=== PATIENT | female | born 1990 | race Caucasian/White ===

== ENCOUNTER 2016-10-25 17:30 | Emergency (ER) | payer MEDICAID ==
[~2016-10-25] VITALS: Wt 52.5 kg
[~2016-10-25 17:30] MED LIST: AZIT500T3 PO; IBUP-1542 PO
[2016-10-25] MEDS ORDERED: ONDANSETRON (ODT) 4 MG TAB ODT STA ×2 (19:09→20:49)
[2016-10-25] MEDS ORDERED: KETOROLAC 15 MG INJ IM STA (20:49)
[2016-10-25 21:06] LABS: URINE BLOOD (Dip) POC 2+ (NEGATIVE)
[2016-10-25] MEDS ORDERED: CIPR500T4 PO (21:48)
[2016-10-25] MEDS ORDERED: ONDA4TAB14 PO (21:48)
[2016-10-25] MEDS ORDERED: ACET500C5 PO (21:48)
--- NOTE | 2016-10-25 21:52 | ERA ---
ER Documentation Chief Complaint Date/Time DATE: 10/25/16 TIME: 21:51 Chief Complaint ap with vomiting and diarrhea HPI This is a 26-year-old female who presents with a chief complaint of abdominal pain 24 hours. Patient describes the pain as "burning". Patient never had symptoms like this before. Patient has not done anything to relieve the symptoms. Patient denies discharge, vomiting, Patient also complains of dysuria 24 hours. ROS All systems reviewed and are negative except as per history of present illness. Medications Home Meds Active Scripts Ondansetron (Ondansetron Odt) 4 Mg Tab.rapdis, 4 MG PO Q6H Y for NAUSEA AND/OR VOMITING, #10 TAB Prov:SUNNY THOMAS PA-C 10/25/16 Acetaminophen* (Tylophen*) 500 Mg Capsule, 2 CAP PO Q8H Y for PAIN AND OR ELEVATED TEMP, #20 CAP Prov:SUNNY THOMAS PA-C 10/25/16 Ciprofloxacin Hcl* (Ciprofloxacin Hcl*) 500 Mg Tablet, 500 MG PO BID for 14 Days , TAB Prov:SUNNY THOMAS PA-C 10/25/16 Ibuprofen* (Motrin*) 600 Mg Tab, 600 MG PO Q6, #14 TAB Prov:ANDREI LIMA MD 10/05/15 Azithromycin* (Zithromax*) 500 Mg Tablet, 500 MG PO DAILY for 5 Days, TAB Prov:ANDREI LIMA MD 10/05/15 Allergies Allergies: Coded Allergies: Penicillins (Verified Allergy, Unknown, 10/05/15) PMhx/Soc Medical and Surgical Hx: pt denies Medical Hx, pt denies Surgical Hx History of Surgery: No Anesthesia Reaction: No Hx Neurological Disorder: No Hx Respiratory Disorders: No Hx Cardiac Disorders: No Hx Psychiatric Problems: No Hx Miscellaneous Medical Probl: No Hx Alcohol Use: No Hx Substance Use: No Hx Tobacco Use: No Smoking Status: Never smoker Physical Exam Vitals Vital Signs Date Time Temp Pulse Resp B/P Pulse Ox O2 Delivery O2 Flow Rate FiO2 10/25/16 17:31 98.1 100 18 117/66 99 Physical Exam Const: Well-appearing 26-year-old female in no acute distress Head: Atraumatic Eyes: Normal Conjunctiva ENT: Normal External Ears, Nose and Mouth. Neck: Full range of motion..~ No meningismus. Resp: Clear to auscultation bilaterally Cardio: Regular rate and rhythm, no murmurs Abd: Soft, non tender, non distended. Normal bowel sounds. Mild suprapubic tenderness. Skin: No petechiae or rashes Back: Moderate CVA tenderness. No midline or flank tenderness Ext: No cyanosis, or edema Neur: Awake and alert Psych: Normal Mood and Affect Results 24 hrs Laboratory Tests Test 10/25/16 21:09 Bedside Urine pH (LAB) 7.0 Bedside Urine Protein (LAB) Trace Bedside Urine Glucose (UA) Negative Bedside Urine Ketones (LAB) Negative Bedside Urine Blood 2+ Bedside Urine Nitrite (LAB) Negative Bedside Urine Leukocyte Esterase (L 3+ Current Medications Medications (Trade) Dose Ordered Sig/[place] Route PRN Reason Start Time Stop Time Status Last Admin Dose Admin Ondansetron HCl (Zofran Odt) 4 mg ONCE STAT ODT 10/25/16 19:09 10/25/16 19:11 DC 10/25/16 19:19 Ketorolac Tromethamine (Toradol) 15 mg ONCE STAT IM 10/25/16 20:49 10/25/16 20:51 DC 10/25/16 21:01 Ondansetron HCl (Zofran Odt) 4 mg ONCE STAT ODT 10/25/16 20:49 10/25/16 20:51 DC 10/25/16 20:59 Procedures/MDM Patient was evaluated and worked up for abdominal discomfort. Patient signs and symptoms are consistent with pyelonephritis versus cystitis including CVA tenderness and mild to moderate suprapubic tenderness. Patient was given Zofran with return nausea and another 4 mg of Zofran with resolution of symptoms..Urine dip was then taken. Computer error caused slight delay in reading. The urine is consistent with pyelonephritis. We will go ahead and treat the patient with Cipro. Talk to my attending Dr. Esquivel who agreed with the assessment and plan. Patient will also be given acetaminophen for discomfort. At this time I do not suspect appendicitis, ectopic , ovarian cyst, PID , intestinal ischemia, peritonitis, intestinal obstruction, perforated viscus, acute pancreatitis, cholelithiasis, cholangitis, mechanical obstruction, or AAA. On repeat exam, the abdominal exam has improved and is nontender. P.o. challenge test was ordered. The patient is well appearing, and tolerates PO. I have spoke with the patient regarding their condition and future management. They have verbally responded that they understand their status and treatment plan. The patients vitals are stable, and their current condition is appropriate for discharge. The patient will be given discharge instructions with return precautions. Departure Diagnosis: Primary Impression: Pyelonephritis Condition: Stable Patient Instructions: Pyelonephritis Additional Instructions: Follow up with your PCP within the next 1-3 days for a more thorough evaluation and a possible referral to a specialist. Return the the emergency department immediately if symptoms worsen or change. If you have any questions regarding medications, ask your pharmacist or us before you leave. If any adverse reactions occur while taking your medications, discontinue the treatment and return to the emergency department immediately. Take your medications as directed, and complete the entire course of treatment. SUNNY THOMAS PA-C Oct 25, 2016 21:52
[2016-10-25 22:08] VITALS: BP 116/71; PULSE 65; RESP 16; TEMP 98.1
== END 2016-10-25 22:09 | disposition home or self-care (01) ==
LOC: FTE 17:30
DX: N12 Tubulo-interstitial nephritis, not specified as acute or chronic (principal); R11.10 Vomiting, unspecified
CPT/HCPCS: 81003; 96372; J1885; Z7502; Z7610

== ENCOUNTER 2017-10-08 13:42 | Emergency (ER) | END 2017-10-08 16:07 | disposition home or self-care (01) ==